=== PATIENT | male | born 1955 | race Caucasian/White ===

== ENCOUNTER 2019-11-06 00:17 | Emergency (ER) | payer OTHER ==
[~2019-11-06] VITALS: Ht 172.7 cm; Wt 86.2 kg
[2019-11-06] MEDS ORDERED: LISINOPRIL2.5 MG PO (00:27)
[2019-11-06] MEDS ORDERED: BYSTOLIC10 MG PO (00:28)
[2019-11-06] MEDS ORDERED: EDARBI40 MG PO (00:28)
[2019-11-06] MEDS ORDERED: ASA81BEC PO (00:29)
[2019-11-06] MEDS ORDERED: KEFLEX500 M1 PO (02:33)
[2019-11-06 02:54] VITALS: BP 170/96
== END 2019-11-06 02:55 | disposition home or self-care (01) ==
LOC: ER 00:17
DX: R04.0 Epistaxis (principal)

== ENCOUNTER → 2020-08-23 | Outpatient (CLI) | payer OTHER ==
[~2020-08-23] MED LIST: ASA81BEC PO; BYSTOLIC10 MG PO; EDARBI40 MG PO; KEFLEX500 M1 PO; LISINOPRIL2.5 MG PO
== END ==
LOC: CAT 13:57
PROVIDERS: ATTEND Internal Medicine Cardiovascular Disease
DX: Z13.6 Encounter for screening for cardiovascular disorders (principal); E78.00 Pure hypercholesterolemia, unspecified; I25.10 Atherosclerotic heart disease of native coronary artery without angina pectoris